=== PATIENT | female | born 1980 | race Caucasian/White ===

== ENCOUNTER 2016-08-11 16:22 | Emergency (ER) | payer OTHER ==
[2016-08-11 16:29] VITALS: BP 126/101; PULSE 117; TEMP 100.5; BMI 31.8
--- NOTE | 2016-08-11 17:11 | PDOC ---
History of Present Illness - General History Source: Patient Exam Limitations: No Limitations - History of Present Illness Initial Comments: 08/11/16 17:55 Patient is 36 year old female with a significant past medical history of migraine headaches who presents to the ED with lower back pain, headache, fever , diffuse body aches and chest pain since last night. She notes that the lower back pain is sharp in nature radiates down to her lower legs. Patient reports mild relief with tramadol. LMP was about a month ago. SH: denies alcohol use, illicit drug use or tobacco use PCP - Dr Morales Neurology - Dr Robledo <Korin Youssef - Last Filed: 08/11/16 17:55> <Lucrecia Gonzalez - Last Filed: 08/11/16 21:27> - General Chief Complaint: Pain Stated Complaint: PAIN Time Seen by Provider: 08/11/16 17:04 Past History <Korin Youssef - Last Filed: 08/11/16 17:55> - Past Medical History Suicide Attempt (Hx): No Other medical history: back problems, f/u with neurologist - Immunization History Immunization Up to Date: Yes - Psycho/Social/Smoking Cessation Hx Anxiety: No Suicidal Ideation: No Smoking History: Never smoked Have you smoked in the past 12 months: No Number of Cigarettes Smoked Daily: 0 Cigars Per Day: 0 Information on smoking cessation initiated: No Hx Alcohol Use: No Drug/Substance Use Hx: No Substance Use Type: None <Lucrecia Gonzalez - Last Filed: 08/11/16 21:27> - Past Medical History Allergies/Adverse Reactions: Allergies Allergy/AdvReac Type Severity Reaction Status Date / Time No Known Allergies Allergy Verified 08/11/16 16:25 Home Medications: Ambulatory Orders NK [No Known Home Medication] 07/23/14 Review of Systems - Review of Systems Able to Perform ROS?: Yes Comments:: 08/11/16 17:56 CONSTITUTIONAL: Present: fever, diffuse body aches Absent: chills, diaphoresis, generalized weakness, malaise, loss of appetite HEENT: Absent: rhinorrhea, nasal congestion, throat pain, throat swelling, difficulty swallowing, mouth swelling, ear pain, eye pain, visual changes CARDIOVASCULAR: Present: chest pain Absent: syncope, palpitations, irregular heart rate, lightheadedness, peripheral edema RESPIRATORY: Absent: cough, shortness of breath, dyspnea with exertion, orthopnea, wheezing, stridor, hemoptysis GASTROINTESTINAL: Absent: abdominal pain, abdominal distension, nausea, vomiting, diarrhea, constipation, melena, hematochezia GENITOURINARY: Absent: dysuria, frequency, urgency, hesitancy, hematuria, flank pain, genital pain MUSCULOSKELETAL: Present: back pain Absent: myalgia, arthralgia, joint swelling SKIN: Absent: rash, itching, pallor HEMATOLOGIC/IMMUNOLOGIC: Absent: easy bleeding, easy bruising, lymphadenopathy, frequent infections ENDOCRINE: Absent: unexplained weight gain, unexplained weight loss, heat intolerance, cold intolerance NEUROLOGIC: Absent: headache, focal weakness or paresthesias, dizziness, unsteady gait, seizure, mental status changes, bladder or bowel incontinence PSYCHIATRIC: Absent: anxiety, depression, suicidal or homicidal ideation, hallucinations. <Korin Youssef - Last Filed: 08/11/16 17:55> *Physical Exam - Vital Signs Last Vital Signs Temp Pulse Resp BP Pulse Ox 100.5 F H 117 H 18 126/101 100 08/11/16 16:26 08/11/16 16:26 08/11/16 16:26 08/11/16 16:26 08/11/16 16:26 - Physical Exam Comments: 08/11/16 17:56 GENERAL: Well developed, well nourished. Awake and alert. No acute distress. HEENT: Normocephalic, atraumatic. PERRLA, EOMI. No conjunctival pallor. Sclera are non- icteric. Moist mucous membranes. Oropharynx is clear. NECK: Supple. Full ROM. No JVD. Carotid pulses 2+ and symmetric, without bruits. No thyromegaly. No lymphadenopathy. CARDIOVASCULAR: Regular rate and rhythm. No murmurs, rubs, or gallops. Distal pulses are 2+ and symmetric. PULMONARY: No evidence of respiratory distress. Lungs clear to auscultation bilaterally. No wheezing, rales or rhonchi. ABDOMINAL: Soft. Non-tender. Non-distended. No rebound or guarding. No organomegaly. Normoactive bowel sounds. MUSCULOSKELETAL Normal range of motion at all joints. No bony deformities or tenderness. No CVA tenderness. EXTREMITIES: No cyanosis. No clubbing. No edema. No calf tenderness. SKIN: Warm and dry. Normal capillary refill. No rashes. No jaundice. NEUROLOGICAL: Alert, awake, appropriate. Cranial nerves 2-12 intact. No deficits to light touch and temperature in face, upper extremities and lower extremities. No motor deficits in the in face, upper extremities and lower extremities. Normoreflexic in the upper and lower extremities. Normal speech. Gait without ataxia. PSYCHIATRIC: Cooperative. Good eye contact. Appropriate mood and affect. <Korin Youssef - Last Filed: 08/11/16 17:55> - Vital Signs Last Vital Signs Temp Pulse Resp BP Pulse Ox 100.5 F H 117 H 18 126/101 100 08/11/16 16:26 08/11/16 16:26 08/11/16 16:26 08/11/16 16:26 08/11/16 16:26 <Lucrecia Gonzalez - Last Filed: 08/11/16 21:27> ED Treatment Course - LABORATORY CBC & Chemistry Diagram: 08/11/16 17:55 08/11/16 17:55 <Lucrecia Gonzalez - Last Filed: 08/11/16 21:27> *DC/Admit/Observation/Transfer - Attestations Scribe Attestion: 08/11/16 17:57 Documentation prepared by STEPHANE Vance, acting as medical staffing coordinator for Lucrecia Gonzalez MD. <Korin Youssef - Last Filed: 08/11/16 17:55> <Lucrecia Gonzalez - Last Filed: 08/11/16 21:27> Diagnosis at time of Disposition: Flu syndrome - Discharge Dispostion Disposition: HOME Condition at time of disposition: Stable - Referrals Referrals: Chioma Cabezas MD [Primary Care Provider] - - Patient Instructions Printed Discharge Instructions: DI for Musculoskeletal Pain, DI for Fever ( Symptom) -- Adult, DI for Viral Syndrome Additional Instructions: please rest stay hydrated take motrin or tylenol for pain and fever return for any persistent or worsening symptoms
[2016-08-11] MEDS ORDERED: IBUPROFEN 600 MG TABLET (FP) PO ONE ×2 (17:45→17:53)
[2016-08-11 18:17] LABS: BASOPHIL 0.8 % (0-2.0); EOSINOPHIL 0.7 % (0-4.5); MCH 28.8 pg (25.7-33.7); MCHC 33.7 g/dl (32.0-36.0); MEAN CELL VOLUME 85.3 fl (80-96); MEAN PLT VOLUME 7.3 fl (7.5-11.1); NEUTROPHILS 71.2 % (42.8-82.8); PLATELET COUNT 214 K/MM3 (134-434); RDW 13.5 % (11.6-15.6); WHITE BLOOD COUNT 7.2 K/mm3 (4.0-10.0)
[2016-08-11 18:38] LABS: URINE APPEARANCE CLEAR; URINE BILIRUBIN NEGATIVE (NEGATIVE); URINE BLOOD NEGATIVE (NEGATIVE); URINE COLOR LTYELLOW; URINE GLUCOSE (UA) NEGATIVE (NEGATIVE); URINE KETONE NEGATIVE (NEGATIVE); URINE NITRITE NEGATIVE (NEGATIVE); URINE PROTEIN NEGATIVE (NEGATIVE); URINE UROBILINOGEN NEGATIVE E.U./dl (0.2-1.0)
[2016-08-11 18:46] LABS: URINE LEUK ESTERASE TRACE (NEGATIVE)
[2016-08-11 18:48] LABS: ALBUMIN 3.3 g/dl (3.4-5.0); ANION GAP 11 (8-16); CALCIUM 8.6 mg/dL (8.5-10.1); CO2 25 mmol/L (21-32); CREATININE 0.6 mg/dL (0.55-1.02); GLUCOSE,RANDOM 97 mg/dL (74-106); SGOT/AST 17 U/L (15-37); SGPT/ALT 18 U/L (12-78)
[2016-08-11 18:50] LABS: ALK PHOS 62 U/L (45-117); BILIRUBIN,TOTAL 0.2 mg/dL (0.2-1.0); TOT PROT 7.5 g/dl (6.4-8.2)
[2016-08-11 19:04] LABS: URINE BACTERIA RARE /hpf (NONE SEEN); URINE MUCUS RARE; URINE RBC 1 /hpf (0-3); URINE WBC 1 /hpf (3-5)
[2016-08-11] MEDS ORDERED: ACETAMINOPHEN 1000 MG/100 ML VIAL (NON FORMULARY) IVPB ONE (19:35)
[2016-08-11] MEDS ORDERED: SODIUM CHLORIDE 1,000 ML IV STA (19:35)
[2016-08-11] MEDS ORDERED: ACETAMINOPHEN INJECTION 100 ML IVPB ONE (19:43)
== END 2016-08-11 21:35 | disposition home or self-care (01) ==
LOC: JER 16:22
PROC: 3E033NZ Introduction of Analgesics, Hypnotics, Sedatives into Peripheral Vein, Percutaneous Approach (ICD-10-PCS; principal; 2016-08-11)
PROC: 3E0337Z Introduction of Electrolytic and Water Balance Substance into Peripheral Vein, Percutaneous Approach (ICD-10-PCS; 2016-08-11)
DX: J11.1 Influenza due to unidentified influenza virus with other respiratory manifestations (principal)
CPT/HCPCS: 36415; 80053; 81003; 81015; 84703; 85025; 87804; 96361; 96374; 99283-25

== ENCOUNTER 2017-06-12 10:30 | Emergency (ER) | payer OTHER ==
[2017-06-12 10:37] VITALS: TEMP 98.3; BMI 31.8
--- NOTE | 2017-06-12 11:06 | PDOC ---
*Physical Exam - Vital Signs Last Vital Signs Temp Pulse Resp BP Pulse Ox 98.3 F 93 H 18 129/85 99 06/12/17 10:33 06/12/17 10:33 06/12/17 10:33 06/12/17 10:33 06/12/17 10:33 ED Treatment Course - LABORATORY CBC & Chemistry Diagram: 06/12/17 11:40 06/12/17 11:40 Medical Decision Making - Medical Decision Making 06/14/17 09:44 Pt was seen in conjunction with BLOSSOM moreira, chart, labs and radiological studies were reviewed and pt was stable for dc home after being given dose of steroids and penicillin in ED *DC/Admit/Observation/Transfer Diagnosis at time of Disposition: Sore throat - Discharge Dispostion Disposition: HOME Condition at time of disposition: Improved - Referrals Referrals: Chioma Cabezas MD [Primary Care Provider] - - Patient Instructions Printed Discharge Instructions: Sore Throat Additional Instructions: At this time I recommend drinking plenty of fluids eating soft nonabrasive foods and if symptoms worsen despite above recommendations and medications given today in the ER, please return to the nearest emergency room. Otherwise follow-up with your primary care physician - Post Discharge Activity
[2017-06-12] MEDS ORDERED: DEXAMETHASONE LIQUID 0.5 MG/5 ML 240 ML BULK BOTTLE PO ONE (11:15)
[2017-06-12] MEDS ORDERED: IBUPROFEN 600 MG TABLET (FP) PO ONE ×2 (11:15→11:33)
[2017-06-12] MEDS ORDERED: DEXAMETHASONE SOD PHOSPHATE 10 MG/1 ML VIAL ONE (11:33)
[2017-06-12 11:59] LABS: HEMATOCRIT 41.2 % (32.4-45.2); HEMOGLOBIN 13.7 GM/dL (10.7-15.3); MCH 28.3 pg (25.7-33.7); MCHC 33.1 g/dl (32.0-36.0); MEAN CELL VOLUME 85.3 fl (80-96); MEAN PLT VOLUME 7.1 fl (7.5-11.1); PLATELET COUNT 278 K/MM3 (134-434); RBC 4.83 M/mm3 (3.60-5.2); RDW 13.6 % (11.6-15.6); WHITE BLOOD COUNT 10.7 K/mm3 (4.0-10.0)
--- NOTE | 2017-06-12 12:10 | PDOC ---
History of Present Illness - General Chief Complaint: Sore Throat Stated Complaint: NECK/ THROAT PAIN Time Seen by Provider: 06/12/17 11:06 History Source: Patient Exam Limitations: No Limitations - History of Present Illness Initial Comments: 06/12/17 12:10 37-year-old female presents to ED with continual left neck swelling and painful swallowing despite completing azithromycin yesterday. Patient denies fever, chills, headache, neck stiffness, drooling, chest pain or cough. Timing/Duration: constant Severity: moderate Associated Symptoms: reports: other (sore throat) Past History - Travel Traveled outside of the country in the last 30 days: No - Past Medical History Allergies/Adverse Reactions: Allergies Allergy/AdvReac Type Severity Reaction Status Date / Time No Known Allergies Allergy Verified 06/12/17 10:37 Home Medications: Ambulatory Orders Omeprazole 40 mg PO PRN PRN 06/12/17 COPD: No - Reproductive History LMP Normal: Yes Is Patient Now?: No - Immunization History Immunization Up to Date: Yes - Suicide/Smoking/Psychosocial Hx Smoking History: Never smoked Have you smoked in the past 12 months: No Number of Cigarettes Smoked Daily: 0 Cigars Per Day: 0 Hx Alcohol Use: No Drug/Substance Use Hx: No Substance Use Type: None Patient Lives Alone: No Review of Systems - Review of Systems Able to Perform ROS?: No Constitutional: No: Symptoms Reported HEENTM: Yes: Throat Pain, Difficulty Swallowing Respiratory: No: Symptoms reported Cardiac (ROS): No: Symptoms Reported ABD/GI: No: Symptoms Reported : No: Symptoms Reported Musculoskeletal: No: Symptoms Reported Integumentary: No: Symptoms Reported Neurological: No: Symptoms reported *Physical Exam - Vital Signs Last Vital Signs Temp Pulse Resp BP Pulse Ox 98.3 F 93 H 18 129/85 99 06/12/17 10:33 06/12/17 10:33 06/12/17 10:33 06/12/17 10:33 06/12/17 10:33 - Physical Exam General Appearance: Yes: Nourished, Appropriately Dressed. No: Apparent Distress HEENT: positive: EOMI, KYAW, Normal Voice, TMs Normal, Pharyngeal Erythema ( posterior pharynx), Tonsillar Exudate (mild bilateral 3 + left tonsil. uvula midline). negative: Pale Conjunctivae, Muffled/Hoarse voice Neck: positive: Supple Respiratory/Chest: positive: Lungs Clear, Normal Breath Sounds. negative: Respiratory Distress, Accessory Muscle Use Cardiovascular: positive: Regular Rhythm, Regular Rate. negative: Murmur Gastrointestinal/Abdominal: positive: Soft. negative: Tenderness Extremity: positive: Normal Capillary Refill. negative: Pedal Edema Integumentary: positive: Normal Color, Warm, Moist Neurologic: positive: Motor Strength 5/5 (ambulatory) ED Treatment Course - LABORATORY CBC & Chemistry Diagram: 06/12/17 11:40 06/12/17 11:40 - RADIOLOGY Radiology Studies Ordered: Category Date Time Status SOFT TISSUE NECK CT WITH CONTR [CT] Stat CT Scan 06/12/17 11:16 Ordered - Medications Given in the ED: ED Medications Discontinued Medications Generic Name Dose Route Start Last Admin Trade Name Freq PRN Reason Stop Dose Admin Dexamethasone 10 mg 06/12/17 11:15 06/12/17 11:45 Decadron Liquid - PO 06/12/17 11:16 10 mg ONCE ONE Administration Ibuprofen 600 mg 06/12/17 11:15 06/12/17 11:35 Motrin - PO 06/12/17 11:16 600 mg ONCE ONE Administration Medical Decision Making - Medical Decision Making 06/12/17 12:51 Pt with complaints of continual sore throat and difficulty swallowing worsen on the left side despite taking azithromycin. Patient on exam did have a 3+ exudative tonsil to the left without uvular deviation or trismus, or change in voice. 06/12/17 13:07 - for beta strep Laboratory Tests 06/12/17 06/12/17 06/12/17 11:40 11:40 11:40 WBC 10.7 H D Hgb 13.7 Hct 41.2 MCV 85.3 Sodium 139 Potassium 4.3 Chloride 105 Carbon Dioxide 25 Anion Gap 9 BUN 11 Creatinine 0.5 L Creat Clearance w eGFR > 60 Random Glucose 89 Total Bilirubin 0.2 AST 9 L ALT 19 Serum , Qual Negative 06/12/17 14:14 CT of the neck shows no evidence of peritonsillar abscess or acute pathology. Patient states feeling somewhat better. Patient will be given an injection of penicillin although her rapid strep was negative since she just recently completed antibiotics and risks the possibility of of a positive throat culture. Patient agrees with plan and will go home with supportive care instructions. *DC/Admit/Observation/Transfer Diagnosis at time of Disposition: Sore throat - Discharge Dispostion Disposition: HOME - Referrals Referrals: Chioma Cabezas MD [Primary Care Provider] - - Patient Instructions Printed Discharge Instructions: Sore Throat Additional Instructions: At this time I recommend drinking plenty of fluids eating soft nonabrasive foods and if symptoms worsen despite above recommendations and medications given today in the ER, please return to the nearest emergency room. Otherwise follow-up with your primary care physician - Post Discharge Activity
[2017-06-12 12:23] LABS: ALBUMIN 3.6 g/dl (3.4-5.0); ALK PHOS 70 U/L (45-117); ANION GAP 9 (8-16); BILIRUBIN,TOTAL 0.2 mg/dL (0.2-1.0); BLOOD UREA NITROGEN 11 mg/dL (7-18); CHLORIDE 105 mmol/L (98-107); CO2 25 mmol/L (21-32); CREATININE 0.5 mg/dL (0.55-1.02); GLUCOSE,RANDOM 89 mg/dL (74-106); POTASSIUM 4.3 mmol/L (3.5-5.1); SGOT/AST 9 U/L (15-37); SGPT/ALT 19 U/L (12-78); SODIUM 139 mmol/L (136-145); TOT PROT 7.7 g/dl (6.4-8.2)
[2017-06-12] MEDS ORDERED: PENICILLIN G BENZATHINE 1,200,000 UNIT/2 ML PFS IM ONE (14:17)
[2017-06-12] MEDS ORDERED: PENICILLIN G BENZATHINE 2,400,000 UNIT/4 ML PFS ONE (14:18)
[2017-06-12 14:40] VITALS: BP 123/80; PULSE 88
== END 2017-06-12 14:40 | disposition home or self-care (01) ==
LOC: JER 10:30
DX: J02.9 Acute pharyngitis, unspecified (principal); R13.13 Dysphagia, pharyngeal phase
CPT/HCPCS: 36415; 70491-TC; 80053; 84703; 85027; 87070; 87430; 96372; 99283-25

== ENCOUNTER 2017-12-19 19:24 | Emergency (ER) | payer OTHER ==
[2017-12-19 19:28] VITALS: BP 140/93; PULSE 108; TEMP 98.7; BMI 31.8
[2017-12-19] MEDS ORDERED: IBUPROFEN 400 MG TABLET (FP) PO ONE ×2 (19:43)
--- NOTE | 2017-12-19 19:47 | PDOC ---
History of Present Illness - General Chief Complaint: Sore Throat Stated Complaint: SORE THROAT Time Seen by Provider: 12/19/17 19:26 History Source: Patient - History of Present Illness Timing/Duration: reports: yesterday Associated Symptoms: reports: fever/chills, nasal congestion, nasal drainage, sore throat. denies: cough, earache, facial pain, muscle aches Past History - Past Medical History Allergies/Adverse Reactions: Allergies Allergy/AdvReac Type Severity Reaction Status Date / Time Penicillins Allergy Verified 12/19/17 19:26 Home Medications: Ambulatory Orders NK [No Known Home Medication] 12/19/17 COPD: No - Immunization History Immunization Up to Date: Yes - Suicide/Smoking/Psychosocial Hx Smoking History: Never smoked Have you smoked in the past 12 months: No Number of Cigarettes Smoked Daily: 0 Cigars Per Day: 0 Hx Alcohol Use: No Drug/Substance Use Hx: No Substance Use Type: None Review of Systems - Review of Systems Constitutional: Yes: Fever HEENTM: Yes: Nose Congestion, Throat Pain. No: Ear Pain Respiratory: No: Cough *Physical Exam - Vital Signs Last Vital Signs Temp Pulse Resp BP Pulse Ox 98.7 F 108 H 18 140/93 97 12/19/17 19:26 12/19/17 19:26 12/19/17 19:26 12/19/17 19:26 12/19/17 19:26 - Physical Exam General Appearance: Yes: Appropriately Dressed. No: Apparent Distress HEENT: positive: Normal ENT Inspection, Normal Voice, TMs Normal, Pharynx Normal. negative: Scleral Icterus (R), Scleral Icterus (L), Muffled/Hoarse voice Neck: positive: Supple. negative: Lymphadenopathy (R), Lymphadenopathy (L) Respiratory/Chest: negative: Respiratory Distress Integumentary: positive: Dry, Warm Neurologic: positive: Fully Oriented, Alert, Normal Mood/Affect Medical Decision Making - Medical Decision Making 12/19/17 19:44 37-year-old female, no significant history, here with sore throat with nasal congestion, itchy, watery eyes and low-grade fever since yesterday. States sore throat worsened today. No sick contacts or recent travel. Non-smoker. Patient well-appearing with mild tachycardia to 108 with unremarkable exam otherwise. Possibly viral. Will rule out strep. Pain control given in ED 12/19/17 20:24 Strep neg. Dc with OTC meds as needed *DC/Admit/Observation/Transfer Diagnosis at time of Disposition: URI (upper respiratory infection) Qualifiers: URI type: unspecified viral URI Qualified Code(s): J06.9 - Acute upper respiratory infection, unspecified - Discharge Dispostion Disposition: HOME Condition at time of disposition: Good - Referrals Referrals: Sheeba Arevalo MD [Primary Care Provider] - - Patient Instructions Printed Discharge Instructions: DI for Viral Pharyngitis Additional Instructions: Your strep test was negative Take motrin as needed for pain and sudafed as needed for congestion - Post Discharge Activity
== END 2017-12-19 20:44 | disposition home or self-care (01) ==
LOC: JERFT 19:24
DX: J06.9 Acute upper respiratory infection, unspecified (principal)
CPT/HCPCS: 87070; 87430; 99281-25

== ENCOUNTER 2023-04-18 13:23 | Emergency (ER) | payer OTHER ==
[2023-04-18] MEDS ORDERED: DEXAMETHASONE SOD PHOSPHATE 10 MG/1 ML VIAL PO ONE (13:38)
[2023-04-18] MEDS ORDERED: ACETAMINOPHEN 500 MG TABLET (FP) PO ONE (13:38)
[2023-04-18] MEDS ORDERED: ALBUTEROL SO4 2.5/IPRATROPIUM 0.5 INH SOL 3 ML VIAL.NEB. NEB ONE ×2 (13:38→13:57)
[2023-04-18 13:46] VITALS: RESP 18; BMI 27.4
[2023-04-18] MEDS ORDERED: ACETAMINOPHEN 500 MG TABLET (FP) ONE (13:57)
[2023-04-18] MEDS ORDERED: DEXAMETHASONE SOD PHOSPHATE 10 MG/1 ML VIAL ONE (13:57)
[2023-04-18 14:51] VITALS: BP 134/89; PULSE 101; TEMP 99.2
== END 2023-04-18 15:51 | disposition home or self-care (01) ==
LOC: FER 13:23
PROC: 3E0F7GC Introduction of Other Therapeutic Substance into Respiratory Tract, Via Natural or Artificial Opening (ICD-10-PCS; principal; 2023-04-18)
DX: R05.9 Cough, unspecified (principal); R09.81 Nasal congestion; J06.9 Acute upper respiratory infection, unspecified
CPT/HCPCS: 0241U-QW; 71046-TC-FY; 81025; 87651; 99284-25; J1100

== ENCOUNTER 2023-05-14 08:11 | Emergency (ER) | payer OTHER ==
[2023-05-14] MEDS ORDERED: ACETAMINOPHEN 325 MG TABLET (FP) PO ONE (08:17)
[2023-05-14] MEDS ORDERED: ACETAMINOPHEN 325 MG TABLET (FP) ONE (08:23)
[2023-05-14 08:26] VITALS: BP 129/95; PULSE 123; RESP 18; TEMP 99.7; BMI 30.1
== END 2023-05-14 09:53 | disposition home or self-care (01) ==
LOC: FER 08:11
DX: R05.9 Cough, unspecified (principal); R09.81 Nasal congestion; J02.9 Acute pharyngitis, unspecified; J06.9 Acute upper respiratory infection, unspecified; U07.1 COVID-19
CPT/HCPCS: 0241U-QW; 99283-25

== ENCOUNTER 2024-03-10 12:20 | Emergency (ER) | payer OTHER ==
[2024-03-10 12:33] VITALS: BP 140/96; PULSE 79; RESP 16; TEMP 98.4; BMI 30.1
[2024-03-10] MEDS ORDERED: KETOROLAC TROMETHAMINE 30 MG/1 ML VIAL ONE (12:44)
[2024-03-10] MEDS ORDERED: LIDOCAINE 5% TOPICAL PATCH ONE (12:45)
[2024-03-10] MEDS ORDERED: GABAPENTIN 300 MG CAPSULE ONE (12:47)
[2024-03-10] MEDS: GABAPENTIN 100 MG CAPSULE PO ONE (12:50)
[2024-03-10] MEDS: GABAPENTIN 300 MG CAPSULE PO ONE (12:50)
[2024-03-10] MEDS: KETOROLAC TROMETHAMINE 30 MG/1 ML VIAL IM ONE (12:50)
[2024-03-10] MEDS: LIDOCAINE 5% TOPICAL PATCH TP ONE (13:15)
[2024-03-10] MEDS ORDERED: LIDOCAINE PATCH REMOVAL MC SCH (22:00)
== END 2024-03-10 16:31 | disposition home or self-care (01) ==
LOC: FER 12:20 → SUPCPDRO 12:20 → FER 16:31
PROC: 3E0233Z Introduction of Anti-inflammatory into Muscle, Percutaneous Approach (ICD-10-PCS; principal; 2024-03-10)
DX: M25.511 Pain in right shoulder (principal); M54.2 Cervicalgia
CPT/HCPCS: 73030-TC-RT-FY; 99284-25